=== PATIENT | male | born 1980 | race American Indian/Alaskan Native ===

== ENCOUNTER 2016-08-28 14:36 | Emergency (ER) | payer OTHER ==
[2016-08-28 14:48] VITALS: BP 149/96
[2016-08-28] MEDS ORDERED: BSS 1 DROPS, TETRACAINE 0.5% 1 DROPS, FUL-GLO 1 MG OS ONE (17:37)
--- NOTE | 2016-08-28 17:50 | Emergency Department Report ---
Eye Injury/Foreign Body - HPI Eye Symptoms: Eye Pain: Yes (burning), Blurred Vision: Yes, Eye Redness: Yes ( left eye), Grinding/Hammering Metal: No, Used Eye Protection: No, Contact Lens Use: Yes, Recalls Injury: No, Photophobia: No Other History: Patient presents c/o left eye pain (burning-type) and redness since this morning. Reports contact lens use which he removes nightly before bed. States he woke up with left eye matted shurt and swollen. Reports photophobia. Reports some blurring of his left vision which he attributes to not having his contact lens. Denies fever, chills, headaches, N/V/D, skin rash. Denies known exposure. ED Review of Systems ROS: Stated complaint: PINK EYE Other details as noted in HPI Comment: All other systems reviewed and negative ED Past Medical Hx - Past Medical History Previous Medical History?: No - Surgical History Past Surgical History?: Yes Additional Surgical History: L eye; testicular; ACL - Social History Smoking Status: Never Smoker Substance Use Type: None - Medications Home Medications: Home Medications Medication Instructions Recorded Confirmed Last Taken Type Polymyxin B Sulf/Trimethoprim 1 drop OP Q3HR #1 bottle 12/05/13 Unknown Rx [Polytrim Eye Drops [id number]/0.1%] HYDROcodone/APAP 5-325 [Union 1 each PO Q6HR PRN #20 tablet 12/19/14 Unknown Rx 5/325] Ibuprofen [Motrin] 600 mg PO Q8H PRN #60 tablet 12/19/14 Unknown Rx Gentamicin 0.3% Ophth Oint 1 applicatio OP QHS #1 tube 08/28/16 Unknown Rx Gentamicin 0.3% Ophth Soln 1 - 2 drops OP Q2H #1 bottle 08/28/16 Unknown Rx Eye Injury Exam - Exam General: Vital signs noted. No distress. Alert and acting appropriately. Eyes: + L conjunctival erythema with copious discharge. Fundoscopic exam unremarkable. Chandra lamp neative for ulcers, cells, abrasions. vISUAL ACUITY: 20 /20 od, 20/20 ou, 20/50 os, sNELLEN, UNCORRECTED. Left eye wnl. HEAD: Normocephalic, atraumatic. ENT: unremarkable. Heart: RRR. Lungs: Equal sounds b/l. Skin: warm and dry. No rash or lesions. ED Course Vital Signs 08/28/16 14:45 Temperature 98.2 F Pulse Rate 70 Respiratory 18 Rate Blood Pressure 149/96 Critical care attestation.: If time is entered above; I have spent that time in minutes in the direct care of this critically ill patient, excluding procedure time. ED Disposition Clinical Impression: Uses contact lenses Conjunctivitis Qualifiers: Conjunctivitis type: acute Acute conjunctivitis type: unspecified Laterality: left Qualified Code(s): H10.32 - Unspecified acute conjunctivitis, left eye Disposition: DISCHARGED TO HOME OR SELFCARE Is pt being admited?: No Does the pt Need Aspirin: No Condition: Stable Instructions: Conjunctivitis (ED) Additional Instructions: Follow instructions for care. Avoid contact lens use until you've been okayed to do so by advertisement distributor/PCP. Use medications as prescribed. Return to ED for new or worsening condition. Prescriptions: Gentamicin 0.3% Ophth Oint 1 applicatio OP QHS #1 tube Gentamicin 0.3% Ophth Soln 1 - 2 drops OP Q2H #1 bottle Referrals: EVIN SMITH MD [Staff Physician] - 24 Hours PRIMARY CARE, [Primary Care Provider] - 24 Hours
[2016-08-28] MEDS ORDERED: BSS ONE (18:08)
[2016-08-28] MEDS ORDERED: TETRACAINE 0.5% ONE (18:08)
[2016-08-28] MEDS ORDERED: FUL-GLO OP ONE (18:08)
== END 2016-08-28 18:38 | disposition home or self-care (01) ==
LOC: ED 14:36
DX: H10.32 Unspecified acute conjunctivitis, left eye (principal)
CPT/HCPCS: 99283